=== PATIENT | female | born 1980 | race Caucasian/White ===

== ENCOUNTER 2021-06-12 14:16 | Emergency (ER) | payer OTHER, SELFPAY ==
[2021-06-12 14:42] VITALS: BP 161/75; PULSE 97; RESP 16; TEMP 36.3; O2SAT 100; BMI 30.7
--- NOTE | 2021-06-12 18:11 | DI.US.S_ITS ---
PROCEDURE: US OB <= 14 WEEKS FETUS INDICATIONS: MISCARRIAGE OUTSIDE/PRIOR DATING DATA: Last menstrual period (LMP): 03/07/2021. LMP-based estimated date of delivery (JUDY): 12/12/2021. First dating scan (date and location): 06/12/2021. Estimated date of delivery (JUDY) from first dating scan: Not applicable. TECHNIQUE: Real-time scanning was performed of the fetus and maternal pelvic organs, with image documentation. Endovaginal scanning was also performed to better visualize the fetus and maternal ovaries. COMPARISON: US, PELVIC COMPLETE, 11/07/2013, 7:29. FINDINGS: Embryo: Single intrauterine is identified with crown-rump length measuring 1.2 cm corresponding to 7 weeks 2 days. Gestational sac is irregular. Heart rate: Not detected Measurement variability in dating: +/- 4 weeks by LMP, +/- 7 days by mean sac diameter (use before 6 weeks gestation if crown-rump length not able to be measured), +/- 5 days by crown-rump length (up to 8 weeks 6 days gestation), +/- 7 days by crown-rump length (up to 13 weeks 6 days gestation). Maternal organs: Ovaries demonstrate left ovarian cysts the largest measuring 4.5 x 3.8 x 4.8 cm.. IMPRESSION: 1. Single intrauterine with irregular gestational sac and no detectable heart tones most suggestive of demise. Recommend correlation to beta HCG levels. Dictated by: Virginia Hallman M.D. on 06/12/2021 at 19:12 Approved by: Virginia Hallman M.D. on 06/12/2021 at 19:14
[2021-06-12 19:11] LABS: Add Manual Diff / Slide Review NO; Basophils Absolute Auto 100 /uL (0-100); Basophils Percent Auto 0.7 % (0-2); Eosinophils Absolute Auto 300 /uL (0-450); Eosinophils Percent Auto 2.6 % (2-4); Hematocrit 41.4 % (36-46); Hemoglobin 13.8 g/dL (12.0-16.0); Lymphocytes Absolute Auto 2500 /uL (1100-4500); Lymphocytes Percent Auto 20.9 % (25-40); Mean Corpuscular HGB Conc 33.4 % (30-36); Mean Corpuscular Hemoglobin 27.1 PG (26-34); Mean Corpuscular Volume 81.1 fL (80-100); Monocytes Absolute Auto 1000 /uL (0-900); Monocytes Percent Auto 8.1 % (3-14); Neutrophils Absolute Auto 8100 /uL (1500-7000); Neutrophils Percent Auto 67.7 % (50-75); Platelet Count 273 X10^3/uL (150-400); Red Cell Distribution Width 14.3 % (11.6-14.8); White Blood Cell Count 11.9 X10^3/uL (4.5-11.0)
--- NOTE | 2021-06-12 19:30 | PC.NURSE ---
Pt recent moved to [facility]. States had miscarriage 6 weeks ago and feels like she still has retained parts. Denies any cramping or bleeding at this time.
--- NOTE | 2021-06-12 19:51 | ED.GENADULT ---
HPI - General Adult General Chief complaint: OB/Uterine Contractions Stated complaint: miscarriage 6wks ago, haven't passed tissue yet Time Seen by Provider: 06/12/21 19:29 Source: patient Mode of arrival: Ambulatory Limitations: no limitations History of Present Illness HPI narrative: Patient is a 41-year-old female. She is a who states that approximately 6 weeks ago she had a miscarriage. She thought that she was 8 weeks along at the time. This was secondary to her last menstrual cycle. She has not seen a salicylic acid blender provider during this particular . She thought that she had a miscarriage because she had some bleeding and cramping at the time. That has since stopped. She has recently moved to this area within the past couple days. Has not established with a OB provider since she has arrived here. She is not having any abdominal pain. No vaginal bleeding. No fevers. No vomiting. She is here because she does not think that she has passed any tissue up to this point. Related Data Allergies Allergy/AdvReac Type Severity Reaction Status Date / Time [facility]ef[facility] [[facility] Allergy Verified 06/12/21 14:42 Review of Systems Constitutional Constitutional: Denies fever(s) Cardiovascular Cardiovascular: Reports system reviewed and no additional complaints, except as documented Respiratory Respiratory: Reports system reviewed and no additional complaints, except as documented Gastrointestinal Comments: No abdominal pain, no nausea vomiting Genitourinary Comments: No vaginal bleeding or urinary symptoms Musculoskeletal Musculoskeletal: Reports system reviewed and no additional complaints, except as documented Integumentary/Breasts Skin/Breast: Reports system reviewed and no additional complaints, except as documented Neurologic Neurologic: Reports system reviewed and no additional complaints, except as documented Psychiatric Psychiatric: Reports system reviewed and no additional complaints, except as documented Hematologic/Lymphatic On Anticoagulants: No Allergic/Immunologic Allergic/Immunologic: Reports system reviewed and no additional complaints, except as documented Patient History Medical History History of recurrent miscarriages Vaginal after Surgical History (Updated 06/12/21 @ 22:41 by Lily Orta MD) Delivery by section Social History Smoking Status: Unknown if ever smoked Smoking Status: Unknown if ever smoked alcohol intake frequency: holidays/special occasions only Substance Use Type: does not use Exam Initial Vital Signs Initial Vital Signs: Vital Signs Temperature 97.3 F L 06/12/21 14:42 Pulse Rate 97 H 06/12/21 14:42 Respiratory Rate 16 06/12/21 14:42 Blood Pressure 161/75 H 06/12/21 14:42 Pulse Oximetry 100 06/12/21 14:42 Const General: cooperative and healthy appearing [facility] Head: normal to inspection and normocephalic Eyes General: appearance normal, both eyes and all related structures Neck Neck: normal visual inspection Chest Chest: normal inspection of the chest Resp Effort & Inspection: normal respiratory effort Cardio Rate: regular rate GI Inspection: normal to inspection Skin General: no rashes or lesions noted Neuro General: patient alert, patient awake, patient oriented x3 and moves all extremities Extrem General: normal to inspection and capillary refill normal Psych Appearance: grossly normal Course Orders Ordered: ED Orders 06/12/21 18:11 US OB <= 14 weeks fetus Stat 06/12/21 19:03 ABO RH Type Stat Complete Blood Count AUTO DIFF Stat HCG Quantitative /Beta subunit Stat 06/12/21 19:58 Consult to Obstetrics Stat Discontinued Medications Rho Immune Globulin (Rho(D) Immune Globulin 1,500 Unit Syringe) 1,500 unit IM NOW ONE Stop: 06/12/21 20:27 Last Admin: 06/12/21 21:19 Dose: 1,500 unit Documented by: GUTIERREZ Vital Signs Vital signs: Vital Signs - 8 hr 06/12/21 21:33 Pulse Rate 81 Respiratory Rate 17 Blood Pressure 167/80 H Pulse Oximetry 100 Medical Decision Making Lab Data Lab results reviewed: Yes I reviewed the patient's lab results. Result diagrams: 06/12/21 19:03 Labs: Lab Results 06/12/21 06/12/21 06/12/21 Range/Units 19:03 19:03 19:03 WBC 11.9 H (4.5-11.0) X10^3/uL RBC 5.10 (4.0-5.2) X10^6/uL Hgb 13.8 (12.0-16.0) g/dL Hct 41.4 (36-46) % MCV 81.1 (80-100) fL MCH 27.1 (26-34) PG MCHC 33.4 (30-36) % RDW 14.3 (11.6-14.8) % Plt Count 273 (150-400) X10^3/uL Neut % (Auto) 67.7 (50-75) % Lymph % (Auto) 20.9 L (25-40) % [place] % (Auto) 8.1 (3-14) % Eos % (Auto) 2.6 (2-4) % Baso % (Auto) 0.7 (0-2) % Neut # (Auto) 8100 H (1001-7829) /uL Lymph # (Auto) 2500 (0582-1999) /uL [place] # (Auto) 1000 H (0-900) /uL Eos # (Auto) 300 (0-450) /uL Baso # (Auto) 100 (0-100) /uL HCG, Quant 149.4 mIU/mL Blood Type A Negative Imaging Data US - OB: Radiologist's Impression: [address] [id number] ReportSigned Patient: Lisa Muir BMR#: [id number]: [id number]:[id number]/Sex: 41 / FDate of Service: 06/12/21Loc: EDAccession Number: [id number] Procedure: US OB <= 14 weeks fetus Ordering Provider: Javid Dc D.O. PROCEDURE: US OB <= 14 WEEKS FETUS INDICATIONS: MISCARRIAGE OUTSIDE/PRIOR DATING DATA: Last menstrual period (LMP): 03/07/2021. LMP-based estimated date of delivery (JUDY): 12/12/2021. First dating scan (date and location): 06/12/2021. Estimated date of delivery (JUDY) from first dating scan: Not applicable. TECHNIQUE: Real-time scanning was performed of the fetus and maternal pelvic organs, with image documentation. Endovaginal scanning was also performed to better visualize the fetus and maternal ovaries. COMPARISON: US, PELVIC COMPLETE, 11/07/2013, 7:29. FINDINGS: Embryo: Single intrauterine is identified with crown-rump length measuring 1.2 cm corresponding to 7 weeks 2 days. Gestational sac is irregular. Heart rate: Not detected Measurement variability in dating: +/- 4 weeks by LMP, +/- 7 days by mean sac diameter (use before 6 weeks gestation if crown-rump length not able to be measured), +/- 5 days by crown-rump length (up to 8 weeks 6 days gestation), +/- 7 days by crown-rump length (up to 13 weeks 6 days gestation). Maternal organs: Ovaries demonstrate left ovarian cysts the largest measuring 4.5 x 3.8 x 4.8 cm.. IMPRESSION: 1. Single intrauterine with irregular gestational sac and no detectable heart tones most suggestive of demise. Recommend correlation to beta HCG levels. Dictated by: Virginia Hallman M.D. on 06/12/2021 at 19:12 Approved by: Virginia Hallman M.D. on 06/12/2021 at 19:14 [facility] Narrative Medical decision making narrative: Patient is Rh negative. She was given RhoGAM. Lab work is unremarkable. Ultrasound shows findings consistent with a intrauterine demise. Dr. orta with [facility] came and saw the patient in the emergency department. They did discuss options to include Cytotec verses follow-up with the D&C. After the patient talked with her she would like to forego any medications and just follow up for a D&C. She was given the phone number for Dr. orta office. Dr. orta also took down her information and they will contact her for follow-up. She was given strict return precautions. She expressed understanding and agreement. Discharge Plan Departure Patient Disposition: Home Clinical Impression: Miscarriage Instructions: DI for Miscarriage Activity Restrictions/Additional Instructions: You were seen tonight by Dr. Orta. She is a physician with the [facility]. Their phone numbers [phone]. You should be receiving a call from them tomorrow about scheduling a D&C. Return to the emergency department prior to that if you develop any pain, fevers or bleeding more than multiple pads an hour for several hours in a row.
[2021-06-12 20:05] LABS: HCG Quantitative /Beta subunit 149.4 mIU/mL
--- NOTE | 2021-06-12 20:47 | P.CONS_ITS ---
History of Present Illness Consult details Date Patient Seen: 06/12/21 Time Patient Seen: 20:47 Chief complaint: miscarriage 6wks ago, haven't passed tissue yet Reason for consult: missed miscarriage Requesting provider: Javid Dc Narrative: This patient is a 41yo with a7 week missed miscarriage in place for approximately 6 weeks, presenting to the emergency department to establish care. The patient reports that she is feeling well with no fevers, chills, cramping, vaginal bleeding, or any additional symptoms, but that she became concerned when she realized that 6 weeks had passed. The patient had not yet established obstetric care during this , but reports a history of 5 prior miscarriages between approximately 6-8 weeks. She reports that she knew she was 7-8 weeks and that she had an episode of spotting 6 weeks ago, stopped feeling , and knew what had happened. She has never required a D&C or cytotec before, passing each after expectant management without complication. Her obstetric history is significant for a CS at 26 weeks after PPROM with subsequent demise, and for a term vaginal delivery. 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 Meds Home Medications and Allergies Allergies Allergy/AdvReac Type Severity Reaction Status Date / Time cefaclor [From [facility]] Allergy Verified 06/12/21 14:42 Review of Systems Constitutional Constitutional: Reports system reviewed and no additional complaints, except as documented Cardiovascular Cardiovascular: Reports system reviewed and no additional complaints, except as documented Respiratory Respiratory: Reports system reviewed and no additional complaints, except as documented Gastrointestinal Gastrointestinal: Reports system reviewed and no additional complaints, except as documented Genitourinary Genitourinary: Reports system reviewed and no additional complaints, except as documented Neurologic Neurologic: Reports system reviewed and no additional complaints, except as documented Exam Vital Signs (past 8 hours): - 06/12/21 14:42 Temperature 97.3 F L Pulse Rate 97 H Respiratory Rate 16 Blood Pressure 161/75 H Pulse Oximetry 100 Oxygen Delivery Method Room Air Const General: cooperative, healthy appearing, comfortable and well groomed GI Palpation: soft and No tender Objective Labs Result Diagrams: 06/12/21 19:03 Labs: Laboratory Results - last 24 hr 06/12/21 06/12/21 06/12/21 19:03 19:03 19:03 WBC 11.9 H RBC 5.10 Hgb 13.8 Hct 41.4 MCV 81.1 MCH 27.1 MCHC 33.4 RDW 14.3 Plt Count 273 Neut % (Auto) 67.7 Lymph % (Auto) 20.9 L [place] % (Auto) 8.1 Eos % (Auto) 2.6 Baso % (Auto) 0.7 Neut # (Auto) 8100 H Lymph # (Auto) 2500 [place] # (Auto) 1000 H Eos # (Auto) 300 Baso # (Auto) 100 HCG, Quant 149.4 Blood Type A Negative Assessment & Plan Assessment and plan (1) Miscarriage: Problem details: This patient presents with a missed , in place for approximately 6 weeks per patient though she had not had any formal ultrasound or evaluation. The patient is stable in the emergency room with no ongoing bleeding or pain and no signs of infection, but we discussed that after 6 weeks of expectant management, I would recommend proceeding with either medical or surgical active management. Because of the duration of the missed , the patient is at increased risk of infection or DIC leading to hemorrhage with medical management. She is hesitant to undergo a D&C because her prior miscarriages passed expectantly. We compared and contrasted the risks, benefits and expected course of vaginal cytotec vs. D&C at length, including the risk of uterine perforation, hemorrhage, or infection with D&C vs. the risk of incomplete miscarriage, hemorrhage, and infection with vaginal cytotec. The patient was uncertain of her desired course, and wished to discuss with her spouse who was not present. We discussed that she would receive rhogam prior to discharge regardless, discussed that if she opts for vaginal cytotec it can be prescribed by the ED physician now or by our office in the AM, and that if she decides for a D&C, she should not eat or drink after midnight and should call our office in the morning. We discussed precautions for return to the emergency room including bleeding soaking more than 2 pads/hr for two hours, fevers, chills, nausea, vomiting, palpitations, or severe pain. The patient vocalized understanding of these precautions and all questions were answered. Status: Acute
[2021-06-12] MEDS: RHO(D) IMMUNE GLOBULIN 1,500 UNIT SYRINGE 1500 UNIT IM (21:19)
[2021-06-12 21:33] VITALS: BP 167/80; PULSE 81; RESP 17; O2SAT 100
== END 2021-06-12 21:36 | disposition home or self-care (01) ==
PROVIDERS: Emergency Provider Emergency Medicine
DX: O03.9 Complete or unspecified spontaneous abortion without complication (principal)
CPT/HCPCS: 36415; 76801; 76817; 84702; 85025; 86900; 86901; 96372; 99284; J2790

== ENCOUNTER 2021-06-13 12:14 | Day surgery (SDC) | payer OTHER, SELFPAY ==
--- NOTE | 2021-06-13 | PATH_ITS ---
[facility] Accession Number: [id number] . 01 Material submitted: . product of conception - PRODUCTS OF CONCEPTION . 02 Diagnosis: Products of Conception: Products of conception identified. [facility] 06/18/2021 1531 Local . 02 Electronically signed: . Glendy Turner MD, Pathologist NPI- [id number] . 01 Gross description: . The specimen is received in formalin, labeled products of conception, and consists of multiple thomas-pink fragments of soft tissue and clotted blood measuring 5.0 x 4.0 x 1.5 cm in aggregate. No chorionic villi or parts are identified. The specimen is entirely submitted in cassettes A1-A6. ([id number]) /[facility] 06/14/2021 1345 Local . 02 Pathologist provided ICD-10: O02.1 . 02 CPT . 584939 Performed at: 01 [facility] Cytology [address] [facility], [place], [place] [id number] MD Francisco Dias MD Phone: [phone] Performed at: 02 [facility] [address] [place], [place] [id number] MD Amara Sigala MD Phone: [phone]
[2021-06-13 13:44] VITALS: BMI 31.6
[2021-06-13 13:44] LABS: COVID19 -Nasal RAPID Negative (Negative)
[2021-06-13 14:00] LABS: COVID19 - ADMIT (NP swab/PCR) Negative (Negative)
[2021-06-13] MEDS: LACTATED RINGERS 1,000 ML 100 ML IV (14:02)
[2021-06-13 14:13] VITALS: BP 135/77; PULSE 82; RESP 16; TEMP 36.3; O2SAT 98
--- NOTE | 2021-06-13 14:20 | P.HPOB_ITS ---
History of Present Illness History of Present Illness Reason for admission: missed Narrative: Lisa Muir is a 41 year old female admitted for section D&C for missed AB [facility] Medical History History of recurrent miscarriages Vaginal after Surgical History (Updated 06/12/21 @ 22:41 by Lily Orta MD) Delivery by section Social History household members: spouse Smoking Status: Unknown if ever smoked alcohol intake: current Meds Home Medications and Allergies Home Medications Medication Instructions Recorded Confirmed Type No Known Home Medications 06/13/21 06/13/21 History Allergies Allergy/AdvReac Type Severity Reaction Status Date / Time cefaclor [From Ceclor] Allergy Verified 06/13/21 14:18 Review of Systems Review of Systems Narrative: This patient is a 41yo with a7 week missed miscarriage in place for approximately 6 weeks, presented to the emergency department on 06/12/2021. The patient reports that she is feeling well with no fevers, chills, cramping, vaginal bleeding, or any additional symptoms, but that she became concerned when she realized that 6 weeks had passed. The patient had not yet established obstetric care during this , but reports a history of 5 prior miscarriages between approximately 6-8 weeks. She reports that she knew she was 7-8 weeks and that she had an episode of spotting 6 weeks ago, stopped feeling , and knew what had happened. She has never required a D&C or cytotec before, passing each after expectant management without complication. Her obstetric history is significant for a CS at 26 weeks after PPROM with subsequent demise, and for a term vaginal delivery. 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 ROS: Yes All systems reviewed with the patient and are negative except as otherwise documented Exam Vital Signs (past 8 hours): - 06/13/21 14:13 Temperature 97.4 F L Pulse Rate 82 Respiratory Rate 16 Blood Pressure 135/77 Pulse Oximetry 98 Oxygen Delivery Method Room Air Narrative Exam Narrative: HEENT exam within normal limits. Lungs are clear to auscultatio n percussion. Heart is regular rate and rhythm no S3-S4 murmurs. No thyromegaly. Abdomen is soft, with minimal tenderness, no palpable organomegaly. Extremities without edema and nontender. Pelvic exam deferred for exam under anesthesia. Objective Labs Labs: Laboratory Results - last 24 hr 06/13/21 06/13/21 10:41 13:28 SARS-CoV-2 (PCR) Negative Negative Assessment & Plan Assessment and plan (1) Miscarriage: Problem details: This patient presents with a missed , in place for approximately 6 weeks per patient though she had not had any formal ultrasound or evaluation. The patient is stable in the emergency room with no ongoing bleeding or pain and no signs of infection, but we discussed that after 6 weeks of expectant management, I would recommend proceeding with either medical or surgical active management. Because of the duration of the missed , the patient is at increased risk of infection or DIC leading to hemorrhage with medical management. She is hesitant to undergo a D&C because her prior miscarriages passed expectantly. We compared and contrasted the risks, benefits and expected course of vaginal cytotec vs. D&C at length, including the risk of uterine perforation, hemorrhage, or infection with D&C vs. the risk of incomplete miscarriage, hemorrhage, and infection with vaginal cytotec. The patient was uncertain of her desired course, and wished to discuss with her spouse who was not present. We discussed that she would receive rhogam prior to discharge regardless, discussed that if she opts for vaginal cytotec it can be prescribed by the ED physician now or by our office in the AM, and that if she decides for a D&C, she should not eat or drink after midnight and should call our office in the morning. We discussed precautions for return to the emergency room including bleeding soaking more than 2 pads/hr for two hours, fevers, chills, nausea, vomiting, palpitations, or severe pain. The patient vocalized understanding of these precautions and all questions were answered. Status: Acute Assessment & Plan narrative: Patient with incomplete miscarriage here for suction D&C. Consent form for D&C was reviewed with the patient. Risk of reaction to medication or anesthesia that could result in or permanent or partial disability. Minor risk of infection. Minor risk of bleeding enough to require blood transfusion which she is agreeable to if necessary to save her life. Possible perforation of the uterus that could result in damage to internal structures such as bowel, bladder, ureters that could require opening the abdomen to repair or additional surgery. Possible retained products after the procedure. Consent form signed and questions answered. Patient declines pain medicine to take at home. COVID-19 COVID-19 status: Negative Result date/Date tested (Pos, Neg/Pending): 06/13/21
--- NOTE | 2021-06-13 14:25 | PM.PREOP ---
Pre-operative Note COVID-19 COVID-19 status: Negative Result date/Date tested (Pos, Neg/Pending): 06/13/21 Interval Note History & Physical reviewed/Exam performed by Physician: Yes Changes to H&P: No
[2021-06-13] MEDS: DOXYCYCLINE 200 MG in SODIUM CHLORIDE 0.9% 250 ML IV (14:40)
--- NOTE | 2021-06-13 14:45 | SUR.OPER ---
Lithotomy on padded OR bed, head on pillow, arms secured on padded arm boards at <90 degrees abduction. Legs secured in padded yellow fins stirrups.
--- NOTE | 2021-06-13 14:51 | P.OP_ITS ---
Operative Date/Time/Diagnoses Date of procedure: 06/13/21 Time of procedure: 14:51 Pre-op diagnosis: Incomplete miscarriage Post-op diagnosis: same Procedure & Clinicians Procedure: Suction D&C Same procedure as scheduled: Yes Indications: 7 week incomplete miscarriage Surgeon: Maru Montgomery Click Yes if Unassisted: Yes Anesthesia Type: General Operative Notes Findings: Normal exam under anesthesia with enlarged uterus. Some mild uterovaginal prolapse. Moderate amount of retained products. Closure Type: not applicable Specimen(s): other (Retained products of conception) Estimated Blood Loss (mL): 10 Blood products transfused: none Procedure in detail: Patient arrived in the operating room and underwent general anesthesia. She was placed in a supine position in low [facility] stirru. She was prepped and draped in usual sterile fashion. Her bladder was drained with an in and out catheter. A single-tooth tenaculum was placed on the anterior lip of the cervix and the cervix was dilated to a #8 Hegar dilator. The #7 suction curette was placed into the uterus to the fundus and tissue removed with the suction curette. Sharp curette was performed to confirm that there was no retained products. The suction curette was replaced in the uterus just to remove any loosened tissue. The patient went to recovery room in good condition. Counts of instruments and sponges were correct. Tissue was sent for pathology. Complications: none Post-operative Condition: stable Disposition: same day surgery Plan for aftercare: Home when awake and stable. Follow-up in 3 weeks for confirmation of full removal of retained products
[2021-06-13 14:58] VITALS: BP 143/68; PULSE 87; RESP 16; TEMP 36.4; O2SAT 98
[2021-06-13 15:03] VITALS: BP 135/66; PULSE 88; RESP 20; O2SAT 98
[2021-06-13] MEDS: fentaNYL 100 MCG/2 ML INJ IV (15:17)
[2021-06-13 15:22] VITALS: BP 131/67; PULSE 83; RESP 16; O2SAT 97
== END 2021-06-13 16:03 | disposition home or self-care (01) ==
PROVIDERS: Specialist; Referring Provider Obstetrics & Gynecology; Visit Provider Obstetrics & Gynecology
PROC: (CPT 58120; principal; 2021-06-13 13:15)
DX: O03.4 Incomplete spontaneous abortion without complication (principal); Z3A.01 Less than 8 weeks gestation of pregnancy; Z20.822 Contact with and (suspected) exposure to COVID-19
CPT/HCPCS: 59812; 87635; U0003; J2250; J2405; J2704; J3010

== ENCOUNTER 2022-03-24 16:06 | Emergency (ER) | payer OTHER, SELFPAY ==
[2022-03-24 16:21] VITALS: BP 142/87; PULSE 104; RESP 16; TEMP 37.4; O2SAT 96; BMI 31.6
[2022-03-24 17:00] LABS: COVID19 -Nasal RAPID POSITIVE (Negative)
--- NOTE | 2022-03-24 18:23 | ED_ITS ---
HPI - URI/Sore Throat <Arik Peoples PA-C - Last Filed: 03/24/22 18:30> General Chief Complaint: Upper Respiratory Symptoms Stated Complaint: COVID+ NEEDS TEST FOR WORK Time Seen by Provider: 03/24/22 18:08 Source: patient Mode of arrival: Ambulatory History of Present Illness HPI Narrative: Patient is a 42-year-old female who presents to the ED testing positive for COVID-19 with home test. She states that her work requires documented prove of the COVID virus. She states that she has been having generalized body aches some associated diarrhea she denies any shortness of breath cough or congestion. She has had COVID previously back in 2019 without any complications. She is vaccinated and current. No reported chest pain fever has been 102.0 no reported nausea vomiting. She states that her son also tested positive at home. Related Data Home Medications Medication Instructions Recorded Confirmed No Known Home Medications 06/13/21 06/13/21 Allergies Allergy/AdvReac Type Severity Reaction Status Date / Time cefaclor [From [facility]] Allergy Verified 06/13/21 14:18 Review of Systems <Arik Peoples PA-C - Last Filed: 03/24/22 18:30> Review of Systems ROS Unobtainable: All systems reviewed & are unremarkable except as noted in HPI and below Constitutional Constitutional: Reports body ache(s), Reports chills, Denies fatigue, Reports fever(s), Denies frequent falls, Reports lethargy and Denies weakness Eyes Eyes: Denies change in vision, Denies eye discharge, Denies irritation and Denies loss of vision ENT Ears, Nose, Mouth, and Throat: Denies change in voice, Denies dizziness, Denies neck pain, Denies sore throat and Denies throat swelling Cardiovascular Cardiovascular: Denies chest pain, Denies irregular heart rhythm, Denies lightheadedness, Denies palpitations, Denies dyspnea, Denies dyspnea on exertion and Denies orthopnea Respiratory Respiratory: Denies cough, Denies dyspnea, Denies dyspnea on exertion and Denies wheezing Gastrointestinal Gastrointestinal: Denies abdominal pain, Denies change in bowel habits, Denies diarrhea, Denies nausea and Denies vomiting Genitourinary Genitourinary: Denies hematuria, Denies flank pain, Denies urinary incontinence and Denies urinary urgency Musculoskeletal Musculoskeletal: Denies back pain, Denies muscle weakness, Denies neck pain, Denies numbness and Denies tingling Integumentary/Breasts Skin/Breast: Denies pruritus, Denies erythema, Denies rash and Denies wounds Neurologic Neurologic: Denies behavioral changes, Denies confusion, Denies dizziness, Denies frequent falls, Denies loss of vision, Denies numbness, Denies tingling and Denies weakness Psychiatric Psychiatric: Denies anxiety, Denies behavioral changes, Denies confusion, Denies depression, Denies homicidal ideation and Denies suicidal ideation Endocrine Endocrine: Denies fatigue, Denies flushing and Denies palpitations Hematologic/Lymphatic Hematologic/Lymphatic: Denies easy bruising Allergic/Immunologic Allergic/Immunologic: Denies urticaria, Denies throat swelling and Denies wheezing Patient History <Arik Peoples PA-C - Last Filed: 03/24/22 18:30> Medical History History of recurrent miscarriages Vaginal after Surgical History Delivery by section Social History household members: spouse Smoking Status: Never smoker alcohol intake: current Smoking Status: Never smoker alcohol intake frequency: holidays/special occasions only Substance Use Type: does not use Exam <Arik Peoples PA-C - Last Filed: 03/24/22 18:30> Initial Vital Signs Initial Vital Signs: Vital Signs Temperature 99.4 F 03/24/22 16:21 Pulse Rate 104 H 03/24/22 16:21 Respiratory Rate 16 03/24/22 16:21 Blood Pressure 142/87 H 03/24/22 16:21 Pulse Oximetry 96 03/24/22 16:21 Oxygen Delivery Method 03/24/22 16:21 Const General: cooperative, healthy appearing and comfortable Nutritional Appearance: average body habitus Orientation: Orientation [facility] Head: normal to inspection Ears: hearing grossly normal bilaterally and external ears normal Nose: external nose normal Face and sinus: normal facial exam Mouth: oral mucosae normal Teeth and gingiva: dentition normal Resp Effort & Inspection: normal respiratory effort and able to speak in complete sentences Auscultation: clear to auscultation bilaterally Cardio Palpation: normal PMI Rate: regular rate Rhythm: regular rhythm Heart Sounds: S1 normal and S2 normal GI Inspection: normal to inspection Palpation: soft and no hepatosplenomegaly Percussion: normal to percussion Auscultation: normal bowel sounds Neuro General: patient alert, patient awake, patient oriented x3, moves all extremities and CN's II-XI intact bilaterally <Marko Gotit MD - Last Filed: 05/01/22 01:47> Initial Vital Signs Initial Vital Signs: Vital Signs Temperature 99.4 F 03/24/22 16:21 Pulse Rate 104 H 03/24/22 16:21 Respiratory Rate 16 03/24/22 16:21 Blood Pressure 142/87 H 03/24/22 16:21 Pulse Oximetry 96 03/24/22 16:21 Oxygen Delivery Method 03/24/22 16:21 Course <Arik Peoples PA-C - Last Filed: 03/24/22 18:30> Orders Ordered: ED Orders 03/24/22 16:30 COVID19 -Nasal RAPID/Pre-Proc Stat Vital Signs Vital signs: Vital Signs - 8 hr 03/24/22 16:21 Temperature 99.4 F Pulse Rate 104 H Respiratory Rate 16 Blood Pressure 142/87 H Pulse Oximetry 96 <Marko Gotti MD - Last Filed: 05/01/22 01:47> Orders Ordered: ED Orders 03/24/22 16:30 COVID19 -Nasal RAPID/Pre-Proc Stat Vital Signs Vital signs: Vital Signs - 8 hr 03/24/22 16:21 Temperature 99.4 F Pulse Rate 104 H Respiratory Rate 16 Blood Pressure 142/87 H Pulse Oximetry 96 MDM - URI/Sore Throat <Arik Peoples PA-C - Last Filed: 03/24/22 18:30> Differential Diagnosis Differential diagnosis: Likely upper respiratory infection and viral infection Lab Data Labs: Lab Results 03/24/22 Range/Units 16:30 SARS-CoV-2 (PCR) Positive H (Negative) MDM Narrative Medical decision making narrative: Patient was evaluated for upper respiratory symptoms. Was tested for COVID and tested positive. She is vaccinated and has had previous COVID infection back in 2019. No reported complications and no associated shortness of breath. Patient is stable and agreeable to be discharged home. Patient's son was tested positive for COVID as well so she will stay home and isolate until symptoms resolved. Patient will be discharged home. <Marko Gotti MD - Last Filed: 05/01/22 01:47> Lab Data Labs: Lab Results 03/24/22 Range/Units 16:30 SARS-CoV-2 (PCR) Positive H (Negative) Discharge Plan Departure Patient Disposition: Home Clinical Impression: COVID-19, Upper respiratory infection Instructions: DI for COVID-19 (Suspected or Confirmed ) Activity Restrictions/Additional Instructions: You were found to test positive for COVID-19 and I would recommend that you isolate at home wash her hands frequently try to socially distance and cover your nose and mouth when you are around people. You can take ibuprofen and Tylenol for body aches and fever. Drink plenty of fluids and you can return to the ED if symptoms worsen or you have increased shortness of breath. Otherwise you can follow-up with her PCP. Thank you for the opportunity to care for you today Prescriptions: No Action No Known Home Medications <Marko Gotti MD - Last Filed: 05/01/22 01:47> Cosign ED Attending Cosignature Attestation: I was immediately available in the department for consultation. ?This documentation has been reviewed and I agree with assessment and plan. Supervised by Marko Gotti MD
[2022-03-24 18:39] VITALS: PULSE 99; O2SAT 98
== END 2022-03-24 18:40 | disposition home or self-care (01) ==
PROVIDERS: Emergency Medicine; Emergency Provider Physician Assistant
DX: U07.1 COVID-19 (principal)
CPT/HCPCS: 87635; 99281; 99282; C9803

== ENCOUNTER 2023-04-23 09:06 | Emergency (ER) | payer OTHER, SELFPAY ==
[2023-04-23 09:14] VITALS: BP 183/87; PULSE 111; RESP 18; TEMP 36.3; O2SAT 99; BMI 30.7
[2023-04-23 09:49] LABS: Add Manual Diff / Slide Review NO; Basophils Absolute Auto 100 /uL (0-100); Basophils Percent Auto 0.9 % (0-2); Eosinophils Absolute Auto 300 /uL (0-450); Eosinophils Percent Auto 4.3 % (2-4); Hematocrit 41.7 % (36-46); Hemoglobin 14.3 g/dL (12.0-16.0); Lymphocytes Absolute Auto 1900 /uL (1100-4500); Lymphocytes Percent Auto 26.2 % (25-40); Mean Corpuscular HGB Conc 34.3 % (30-36); Mean Corpuscular Hemoglobin 27.8 PG (26-34); Monocytes Absolute Auto 600 /uL (0-900); Neutrophils Absolute Auto 4400 /uL (1500-7000); Neutrophils Percent Auto 60.6 % (50-75); Platelet Count 281 X10^3/uL (150-400); Red Blood Cell Count 5.15 X10^6/uL (4.0-5.2); White Blood Cell Count 7.3 X10^3/uL (4.5-11.0)
[2023-04-23 09:51] LABS: Bacteria Urine None Seen; Culture Indicated Urine Cult Not Indicated; RBC Urine 0-1/HPF (0-5/HPF); Squamous Epithelial Cell Urine None Seen (0-5/HPF); WBC Urine None Seen (0-5/HPF)
[2023-04-23 09:58] LABS: BUN Creatinine Ratio 16.1 (6-22); Blood Urea Nitrogen 9 mg/dL (7-17); Calcium 9.2 mg/dL (8.4-10.2); Carbon Dioxide 26 mmol/L (22-32); Chloride 102 mmol/L (98-107); Estimated Glomerular Filt Rate > 60 mL/min (>60); Glucose 143 mg/dL (70-100); HEMOLYSIS < 15 (0-50); Potassium 3.8 mmol/L (3.4-5.1); Sodium 137 mmol/L (137-145)
--- NOTE | 2023-04-23 10:05 | DI.US.S_ITS ---
PROCEDURE: US PELVIC COMPLETE INDICATIONS: SAB 2 MOS AGO; DUB SINCE TECHNIQUE: Real-time scanning was performed of the pelvic organs, with image documentation. Additional endovaginal scanning was necessary due to incomplete visualization of the adnexal and endometrial structures by transabdominal scanning. COMPARISON: [facility], [place], PELVIC COMPLETE, 11/07/2013, 7:29. FINDINGS: Uterus: Uterus is anteverted and normal in size at 6.6 x 3.3 x 4.8 cm. The myometrium is homogeneous. The endometrium measures 4 mm combined thickness. No retained products of conception. Ovaries: The right ovary measures 1.6 x 2.5 x 1.5 cm, with a calculated ovarian volume of 3 cc. The left ovary measures 2.2 x 1.7 x 1.4 cm, with a calculated ovarian volume of 3 cc. The ovaries have a normal sonographic appearance. Less than 12 follicles can be seen in each ovary. No adnexal masses are seen. Other: No pathologic free abdominal or pelvic fluid. IMPRESSION: Endometrium measures 4 mm, and is homogeneous. No findings to suggest retained products of conception. We strive to produce accurate, complete, and clear reports of imaging services. To assist us in improving patient care, this report was composed using standard report templates and voice recognition software. Therefore, it may contain abnormal punctuation, insertions and/or omissions. Occasional wrong-word or sound-alike substitutions may occur. Though we review the report and make efforts to correct it, we do recommend that the report be read carefully in proper context to recognize any text inaccuracies. Dictated by: Shon Sethi M.D. on 04/23/2023 at 11:25 Approved by: hSon Sethi M.D. on 04/23/2023 at 11:26
--- NOTE | 2023-04-23 10:15 | ED_ITS ---
HPI - <Margie Fink PA-C - Last Filed: 04/23/23 12:05> General Chief complaint: Vaginal Bleeding Stated complaint: miscarriage Time Seen by Provider: 04/23/23 09:52 Source: patient Mode of arrival: Ambulatory Limitations: no limitations History of Present Illness HPI Narrative: A 43-year-old female now who presents with concern for intermittent persistent vaginal bleeding with some cramping since she believes she had a miscarriage in early January. Patient states that she was 7 or 8 weeks and had had a positive test but started having bleeding in early January and assumed she was having another miscarriage. Patient states that her bleeding has been intermittent she says she sometimes goes a week or 2 without much bleeding at all and then suddenly will have more bleeding for a day or so yesterday she had cramping and bleeding at work and had to leave work because this happened suddenly and unexpectedly. She assumes that she is still having a miscarriage but wanted to come in for further evaluation. She states that the bleeding has not been regular the way that period would be. She denies intense cramping or pain along with her bleeding episodes but notes that she has a very high pain tolerance, noting she has been in active labor without significant pain when she did give . Related Data Home Medications Medication Instructions Recorded Confirmed No Known Home Medications 06/13/21 06/13/21 Allergies Allergy/AdvReac Type Severity Reaction Status Date / Time cefaclor [From [facility]] Allergy Verified 04/23/23 09:19 Review of Systems <Margie Fink PA-C - Last Filed: 04/23/23 12:05> Review of Systems Narrative: See HPI Exam <Margie Fink PA-C - Last Filed: 04/23/23 12:05> Narrative Exam Narrative: GENERAL: 43 year old patient appears stated age. Obese, Well-developed patient, in mild distress. HEAD: Atraumatic. Normocephalic. EYES: Pupils equal round and reactive. Extraocular motions intact. No scleral icterus. No injection or drainage. ENT: Nose without bleeding, purulent drainage. Airway patent. NECK: Trachea midline. CARDIOVASCULAR: Regular rate and rhythm without murmurs, gallops, or rubs. RESPIRATORY: Clear to auscultation. Breath sounds equal bilaterally. No wheezes, rales, or rhonchi. GASTROINTESTINAL: Abdomen soft, non-tender, nondistended, no CVA tenderness. EXTREMITIES: No edema or joint tenderness. BACK: Nontender without deformity or crepitance. No flank tenderness. NEURO: AOx3. SKIN: No rash or erythema of visible areas Initial Vital Signs Initial Vital Signs: Vital Signs Temperature 97.4 F L 04/23/23 09:14 Pulse Rate 111 H 04/23/23 09:14 Respiratory Rate 18 04/23/23 09:14 Blood Pressure 183/87 H 04/23/23 09:14 Pulse Oximetry 99 04/23/23 09:14 Oxygen Delivery Method Room Air 04/23/23 09:14 <Valerie Mohr DO - Last Filed: 04/23/23 19:15> Initial Vital Signs Initial Vital Signs: Vital Signs Temperature 97.4 F L 04/23/23 09:14 Pulse Rate 111 H 04/23/23 09:14 Respiratory Rate 18 04/23/23 09:14 Blood Pressure 183/87 H 04/23/23 09:14 Pulse Oximetry 99 04/23/23 09:14 Oxygen Delivery Method Room Air 04/23/23 09:14 Course <Margie Fink PA-C - Last Filed: 04/23/23 12:05> Orders Ordered: ED Orders 04/23/23 09:21 Urine Microscopic Stat 04/23/23 09:35 Basic Metabolic Panel Stat Complete Blood Count AUTO DIFF Stat Type and Screen Stat 04/23/23 10:05 US pelvic complete Stat 04/23/23 10:15 Beta HCG, Quant [HCG Quantitative /Beta subunit] Stat Vital Signs Vital signs: Vital Signs - 8 hr 04/23/23 12:06 Pulse Rate 85 Respiratory Rate 18 Blood Pressure 179/84 H Pulse Oximetry 98 Oxygen Delivery Method Room Air <Valerie Mohr DO - Last Filed: 04/23/23 19:15> Orders Ordered: ED Orders 04/23/23 09:21 Urine Microscopic Stat 04/23/23 09:35 Basic Metabolic Panel Stat Complete Blood Count AUTO DIFF Stat Type and Screen Stat 04/23/23 10:05 US pelvic complete Stat 04/23/23 10:15 Beta HCG, Quant [HCG Quantitative /Beta subunit] Stat Vital Signs Vital signs: Vital Signs - 8 hr 04/23/23 12:06 Pulse Rate 85 Respiratory Rate 18 Blood Pressure 179/84 H Pulse Oximetry 98 Oxygen Delivery Method Room Air MDM - OB/Uterine Contractions <Margie Fink PA-C - Last Filed: 04/23/23 12:05> Differential Diagnosis Differential diagnosis: Likely other (Retained products of conception, irregular vaginal bleeding, miscarriage, juan f-menopause) Lab Data Attestation: I reviewed the patient's lab results. 04/23/23 09:35 04/23/23 09:35 Labs: Lab Results 04/23/23 04/23/23 04/23/23 Range/Units 09:21 09:35 09:35 WBC 7.3 (4.5-11.0) X10^3/uL RBC 5.15 (4.0-5.2) X10^6/uL Hgb 14.3 (12.0-16.0) g/dL Hct 41.7 (36-46) % MCV 81.0 (80-100) fL MCH 27.8 (26-34) PG MCHC 34.3 (30-36) % RDW 14.0 (11.6-14.8) % Plt Count 281 (150-400) X10^3/uL Neut % (Auto) 60.6 (50-75) % Lymph % (Auto) 26.2 (25-40) % [place] % (Auto) 8.0 (3-14) % Eos % (Auto) 4.3 H (2-4) % Baso % (Auto) 0.9 (0-2) % Neut # (Auto) 4400 (0419-2595) /uL Lymph # (Auto) 1900 (9892-7649) /uL [place] # (Auto) 600 (0-900) /uL Eos # (Auto) 300 (0-450) /uL Baso # (Auto) 100 (0-100) /uL Sodium 137 (137-145) mmol/L Potassium 3.8 (3.4-5.1) mmol/L Chloride 102 (98-107) mmol/L Carbon Dioxide 26 (22-32) mmol/L BUN 9 (7-17) mg/dL Creatinine 0.56 (0.52-1.04) mg/dL Estimated GFR > 60 (>60) mL/min BUN/Creatinine Ratio 16.1 (6-22) Glucose 143 H (70-100) mg/dL Calcium 9.2 (8.4-10.2) mg/dL HCG, Quant mIU/mL Urine RBC 0-1/hpf (0-5/HPF) Urine WBC None seen (0-5/HPF) Ur Squamous Epith Cells None seen (0-5/HPF) Urine Bacteria None seen (None) Ur Culture Indicated? Cult not indicated Blood Type Antibody Screen 04/23/23 04/23/23 Range/Units 09:35 09:35 WBC (4.5-11.0) X10^3/uL RBC (4.0-5.2) X10^6/uL Hgb (12.0-16.0) g/dL Hct (36-46) % MCV (80-100) fL MCH (26-34) PG MCHC (30-36) % RDW (11.6-14.8) % Plt Count (150-400) X10^3/uL Neut % (Auto) (50-75) % Lymph % (Auto) (25-40) % [place] % (Auto) (3-14) % Eos % (Auto) (2-4) % Baso % (Auto) (0-2) % Neut # (Auto) (7313-7134) /uL Lymph # (Auto) (7069-4713) /uL [place] # (Auto) (0-900) /uL Eos # (Auto) (0-450) /uL Baso # (Auto) (0-100) /uL Sodium (137-145) mmol/L Potassium (3.4-5.1) mmol/L Chloride (98-107) mmol/L Carbon Dioxide (22-32) mmol/L BUN (7-17) mg/dL Creatinine (0.52-1.04) mg/dL Estimated GFR (>60) mL/min BUN/Creatinine Ratio (6-22) Glucose (70-100) mg/dL Calcium (8.4-10.2) mg/dL HCG, Quant < 2.4 mIU/mL Urine RBC (0-5/HPF) Urine WBC (0-5/HPF) Ur Squamous Epith Cells (0-5/HPF) Urine Bacteria (None) Ur Culture Indicated? Blood Type A Negative Antibody Screen Negative Point of Care Testing Test Results Negative Urine Dip Bedside Urine Glucose Negative Bedside Urine Bilirubin - Negative Bedside Urine Ketone - Negative Urine Specific [place] 1.020 Bedside Urine Occult Blood - Negative Bedside Urine pH 5.5 Bedside Urine Protein - Negative Bedside Urine Urobilinogen - Negative Bedside Urine Nitrite - Negative Bedside Urine Leukocytes - Negative Esterase Imaging Data US - CLIENT SERVICE ASSOCIATE: Radiologist's Impression: [address] [address] Ultrasound Report Signed Patient: Lisa Muir MR#: [id number] : 1980 Acct:[id number] Age/Sex: 43 / F Date of Service: 04/23/23 Loc: ED Accession Number: [id number] ?? Procedure: US pelvic complete Ordering Provider: Margie Fink P.A-C PROCEDURE:? US PELVIC COMPLETE ? INDICATIONS:? SAB 2 MOS AGO; DUB SINCE ? TECHNIQUE:? Real-time scanning was performed of the pelvic organs, with image documentation.? Additional endovaginal scanning was necessary due to incomplete visualization of the adnexal and endometrial structures by transabdominal scanning.? ? COMPARISON:? [facility], , PELVIC COMPLETE, 11/07/2013, 7:29. ? FINDINGS:? ?? Uterus:? Uterus is anteverted and normal in size at 6.6 x 3.3 x 4.8 cm. The myometrium is homogeneous. ? The endometrium measures 4 mm combined thickness.? No retained products of conception. ? Ovaries:? The right ovary measures 1.6 x 2.5 x 1.5 cm, with a calculated ovarian volume of 3 cc. The left ovary measures 2.2 x 1.7 x 1.4 cm, with a calculated ovarian volume of 3 cc. The ovaries have a normal sonographic appearance. Less than 12 follicles can be seen in each ovary.? No adnexal masses are seen. ? Other:? No pathologic free abdominal or pelvic fluid. ? ? IMPRESSION:? Endometrium measures 4 mm, and is homogeneous.? No findings to suggest retained products of conception. ? We strive to produce accurate, complete, and clear reports of imaging services. To assist us in improving patient care, this report was composed using standard report templates and voice recognition software. Therefore, it may contain abnormal punctuation, insertions and/or omissions. Occasional wrong-word or sound-alike substitutions may occur. Though we review the report and make efforts to correct it, we do recommend that the report be read carefully in proper context to recognize any text inacc uracies. ? ? Dictated by: Shon Sethi M.D. on 04/23/2023 at 11:25 ? ? Approved by: Shon Sethi M.D. on 04/23/2023 at 11:26?? Treatment and disposition Shared decision making:: Shared decision-making was used in determining patient's plan of care today in the emergency department and plan for outpatient follow-up. MDM Narrative Medical decision making narrative: Is a well-appearing 43-year-old woman who presents with concern for miscarriage that she feels began in early January after being 7-8 weeks . Patient has not seen anyone for her or since the bleeding began in early January and has had mild intermittent occasional bleeding since that time. Concern for possible retained products of conception. Patient is noted to be hypertensive and slightly tachycardic on her initial vitals however I suspect that this is because she is nervous and uncomfortable, and worried. She is very well- appearing today nontoxic, she is nontender on exam ultrasound is ordered as well as labs for further evaluation, she has a negative urine , CBC CMP are unremarkable, no evidence of anemia, her hCG quant is less than 3, her ultrasound is within normal limits no thickened endometrium or retained products seen. Discussed the results of today's labs and imaging with the patient and encouraged her to follow up with primary care provider and possibly see gyne cology for further evaluation. She states she is not actively trying to get but she definitely does not want to go on control to regulate her bleeding. Did advise her quite possible that her irregular bleeding is hormonal related to her recent miscarriage, it is also a possibility that she is perimenopausal. Patient's heart rate did improve on vitals rechecked but she remains somewhat hypertensive, she was advised to follow up with her primary care provider regarding this. Return precautions provided, follow-up plan discussed, all questions answered. <Valerie Mohr, - Last Filed: 04/23/23 19:15> Lab Data Labs: Lab Results 04/23/23 04/23/23 04/23/23 Range/Units 09:21 09:35 09:35 WBC 7.3 (4.5-11.0) X10^3/uL RBC 5.15 (4.0-5.2) X10^6/uL Hgb 14.3 (12.0-16.0) g/dL Hct 41.7 (36-46) % MCV 81.0 (80-100) fL MCH 27.8 (26-34) PG MCHC 34.3 (30-36) % RDW 14.0 (11.6-14.8) % Plt Count 281 (150-400) X10^3/uL Neut % (Auto) 60.6 (50-75) % Lymph % (Auto) 26.2 (25-40) % [place] % (Auto) 8.0 (3-14) % Eos % (Auto) 4.3 H (2-4) % Baso % (Auto) 0.9 (0-2) % Neut # (Auto) 4400 (5569-0144) /uL Lymph # (Auto) 1900 (8647-7282) /uL [place] # (Auto) 600 (0-900) /uL Eos # (Auto) 300 (0-450) /uL Baso # (Auto) 100 (0-100) /uL Sodium 137 (137-145) mmol/L Potassium 3.8 (3.4-5.1) mmol/L Chloride 102 (98-107) mmol/L Carbon Dioxide 26 (22-32) mmol/L BUN 9 (7-17) mg/dL Creatinine 0.56 (0.52-1.04) mg/dL Estimated GFR > 60 (>60) mL/min BUN/Creatinine Ratio 16.1 (6-22) Glucose 143 H (70-100) mg/dL Calcium 9.2 (8.4-10.2) mg/dL HCG, Quant mIU/mL Urine RBC 0-1/hpf (0-5/HPF) Urine WBC None seen (0-5/HPF) Ur Squamous Epith Cells None seen (0-5/HPF) Urine Bacteria None seen (None) Ur Culture Indicated? Cult not indicated Blood Type Antibody Screen 04/23/23 04/23/23 Range/Units 09:35 09:35 WBC (4.5-11.0) X10^3/uL RBC (4.0-5.2) X10^6/uL Hgb (12.0-16.0) g/dL Hct (36-46) % MCV (80-100) fL MCH (26-34) PG MCHC (30-36) % RDW (11.6-14.8) % Plt Count (150-400) X10^3/uL Neut % (Auto) (50-75) % Lymph % (Auto) (25-40) % [place] % (Auto) (3-14) % Eos % (Auto) (2-4) % Baso % (Auto) (0-2) % Neut # (Auto) (1662-6874) /uL Lymph # (Auto) (0421-2001) /uL [place] # (Auto) (0-900) /uL Eos # (Auto) (0-450) /uL Baso # (Auto) (0-100) /uL Sodium (137-145) mmol/L Potassium (3.4-5.1) mmol/L Chloride (98-107) mmol/L Carbon Dioxide (22-32) mmol/L BUN (7-17) mg/dL Creatinine (0.52-1.04) mg/dL Estimated GFR (>60) mL/min BUN/Creatinine Ratio (6-22) Glucose (70-100) mg/dL Calcium (8.4-10.2) mg/dL HCG, Quant < 2.4 mIU/mL Urine RBC (0-5/HPF) Urine WBC (0-5/HPF) Ur Squamous Epith Cells (0-5/HPF) Urine Bacteria (None) Ur Culture Indicated? Blood Type A Negative Antibody Screen Negative Point of Care Testing Test Results Negative Urine Dip Bedside Urine Glucose Negative Bedside Urine Bilirubin - Negative Bedside Urine Ketone - Negative Urine Specific [place] 1.020 Bedside Urine Occult Blood - Negative Bedside Urine pH 5.5 Bedside Urine Protein - Negative Bedside Urine Urobilinogen - Negative Bedside Urine Nitrite - Negative Bedside Urine Leukocytes - Negative Esterase Discharge Plan Departure Patient Disposition: Home Clinical Impression: Irregular uterine bleeding Instructions: DI for Vaginal Bleeding Activity Restrictions/Additional Instructions: *You have been diagnosed with [irregular vaginal bleeding ] *What to do: *Please continue to take your regular medications as directed. [ ] New medication prescriptions sent to your pharmacy: [ ] [ ] New medication written as a paper prescription [* ] No new medications given *Please follow up with your primary care provider in 2-3 days, call for an appointment. Let them know you were seen in the Emergency Department and that we ask that you be seen in follow up. We will electronically transmit a record of today's note if your PCP is in our system. We did an ultrasound today to further evaluate as you had had a positive test followed by bleeding beginning in early January and the ultrasound did not show any pelvic abnormalities, you do not have any retained products of conception in your uterus on the ultrasound and you also do not appear to have a thickened endome trium, so the cause of your irregular bleeding is unclear at this point. It is possible that your body is just taking some time to reset after the miscarriage you had recently a few months ago, and I do recommend that you follow-up with your primary care and or OB/Gynecology for further evaluation, if your bleeding continues to be irregular and bothersome it may be helpful for you to go on control to regulate it or alternatively it may be valuable for you to have some hormonal testing done for further evaluation to determine the cause of your irregular bleeding. Again it is possible that your body just needs a little time to reset and go back to normal in terms of consistency with your periods after your recent miscarriage. Of course if you do develop new or concerning symptoms such as persistent heavy bleeding, lightheadedness dizziness fevers chills new or severe pelvic pain please do not hesitate to seek re-evaluation immediately. *If you do not have a primary care provider please contact the [facility] Resource line at [phone]. They will ask some questions about your medical history and help get you set up with a doctor in the community. *Return to Emergency Department if you should have any new, worsening or concerning symptoms, such as [fever greater than 101 F, shaking chills, worsening pain, persistent vomiting or other bothersome symptoms] Prescriptions: No Action No Known Home Medications Referrals: Provider,Rhonda MARR [Primary Care Provider] - Stand Alone Forms: Patient Portal/API <Valerie Mohr DO - Last Filed: 04/23/23 19:15> Cosign ED Attending Donavonature Attestation: I was immediately available in the department for consultation. Documentation has been reviewed.
[2023-04-23 10:48] LABS: HCG Quantitative /Beta subunit < 2.4 mIU/mL
[2023-04-23 12:06] VITALS: BP 179/84; PULSE 85; RESP 18; O2SAT 98
== END 2023-04-23 12:07 | disposition home or self-care (01) ==
PROVIDERS: Emergency Medicine; Emergency Provider Student in an Organized Health Care Education/Training Program
DX: N93.9 Abnormal uterine and vaginal bleeding, unspecified (principal)
CPT/HCPCS: 36415; 76830; 76856; 80048; 81003; 81015; 81025; 84702; 85025; 86850; 86900; 86901; 99283